=== PATIENT | female | born 1980 | race Caucasian/White ===

== ENCOUNTER 2016-09-02 20:27 | Emergency (ER) | payer MEDICAID ==
[2016-09-02 23:42] VITALS: BP 134/80
== END 2016-09-02 23:42 | disposition short-term general hospital (02) ==
LOC: ED 20:27
DX: R51 Headache (principal); D49.6 Neoplasm of unspecified behavior of brain; E07.9 Disorder of thyroid, unspecified
CPT/HCPCS: J1170; J2405

== ENCOUNTER 2017-10-09 13:26 | Emergency (ER) | payer MEDICAID ==
[~2017-10-09] VITALS: Ht 157.5 cm; Wt 60.3 kg
[2017-10-09 13:33] VITALS: BP 120/73; Ht 157.5 cm; Wt 60.3 kg
== END 2017-10-09 14:53 | disposition home or self-care (01) ==
LOC: ED 13:26
DX: J02.9 Acute pharyngitis, unspecified (principal); Z85.850 Personal history of malignant neoplasm of thyroid

== ENCOUNTER 2018-05-28 14:09 | Emergency (ER) | payer MEDICAID ==
[~2018-05-28] VITALS: Ht 165.1 cm; Wt 58.5 kg
[2018-05-28 14:38] VITALS: Ht 165.1 cm; Wt 58.5 kg
[2018-05-28 17:43] VITALS: BP 122/74
== END 2018-05-28 17:43 | disposition home or self-care (01) ==
LOC: ED 14:09
DX: R51 Headache (principal)

== ENCOUNTER 2019-04-02 20:33 | Emergency (ER) | payer MEDICAID ==
[~2019-04-02] VITALS: Ht 154.9 cm; Wt 66.7 kg
[2019-04-02 20:42] VITALS: Ht 154.9 cm; Wt 66.7 kg
[2019-04-02 21:50] LABS: BASOPHIL % 0.3 % (0-2); PLATELET COUNT 352 x10^3mcL (130-400); RED CELL DISTRIBUTION WIDTH 13.7 % (11.5-14.5)
[2019-04-03 01:52] VITALS: BP 103/59
== END 2019-04-03 01:52 | disposition home or self-care (01) ==
LOC: ED 20:33
PROVIDERS: Emergency Medicine
DX: O20.0 Threatened abortion (principal); O99.281 Endocrine, nutritional and metabolic diseases complicating pregnancy, first trimester; E03.9 Hypothyroidism, unspecified; Z3A.01 Less than 8 weeks gestation of pregnancy
CPT/HCPCS: 36415